=== PATIENT | female | born 1995 | race Caucasian/White ===

== ENCOUNTER 2023-09-10 20:37 | Emergency (ER) | payer SELFPAY ==
[~2023-09-10] VITALS: Ht 167.6 cm; Wt 58.0 kg
[2023-09-10] MEDS ORDERED: ondansetron HCL 4 MG/2 ML VIAL IV ONE (21:15)
[2023-09-10] MEDS ORDERED: SODIUM CHLORIDE 0.9% 1,000 ML IV ONE (21:15)
[2023-09-10] MEDS ORDERED: PRENATAL MULTI1 EAC3 PO (21:15)
[2023-09-10 21:35] LABS: BASOPHILS 0.2 % (0-2); EOSINOPHILS 0.5 % (0-6); HEMATOCRIT 35.8 % (35.0-50.0); HEMOGLOBIN 12.5 g/dL (12.0-18.0); LYMPHOCYTES 7.9 % (24-44); MCH 30.6 (27-36); MCHC 34.8 g/dl (30-36); MONOCYTES 3.1 % (0-12); NEUTROPHILS 88.3 % (39-80); PLATELET COUNT 194 K/uL (140-440); RBC 4.07 M/ul (4.3-5.7); RDW 13.2 (10.5-15.0)
[2023-09-10 21:49] LABS: ALBUMIN 3.3 g/dL (3.4-5.0); ALBUMIN/GLOBULIN RATIO 0.94 (1.1-2.4); ANION GAP 14.4 (7-21); BILIRUBIN, TOTAL 1.5 ng/dL (0.2-1.0); CALCIUM 8.6 mg/dL (8.5-10.1); CREATININE, SERUM 0.6 mg/dL (0.55-1.02); POTASSIUM 3.4 mmol/L (3.5-5.1); PROTEIN, TOTAL 6.8 g/dL (6.4-8.2)
[2023-09-10 22:39] LABS: BILIRUBIN, URINE NEGATIVE (negative); BLOOD/HGB, URINE NEGATIVE (Negative); KETONE, URINE >=80 (Negative); LEUK ESTERASE, URINE NEGATIVE (negative); NITRITE, URINE NEGATIVE (negative)
[2023-09-10] MEDS ORDERED: ONDANSETRON ODT4 MG PO (22:51)
[2023-09-10] MEDS ORDERED: ONDANSETRON 4 MG HOME.PACK SL ONE (23:00)
[2023-09-10 23:03] VITALS: BP 116/78
== END 2023-09-10 23:11 | disposition home or self-care (01) ==
LOC: ED 20:37
PROVIDERS: Family Medicine
DX: O21.0 Mild hyperemesis gravidarum (principal); Z3A.12 12 weeks gestation of pregnancy
CPT/HCPCS: 36415; 80053; 81003; 82239; 85025; A9270; J2405; J7030